=== PATIENT | female | born 1955 | race Caucasian/White ===

== ENCOUNTER → 2016-08-14 | Day surgery (SDC) | payer MEDICARE ==
[~2016-08-14] MED LIST: LIDOCAINE 1%/EPINEPHRINE INJ 20 ML VIAL ONE
--- NOTE | 2016-08-14 17:21 | Operative Report ---
Operative Report DATE OF SURGERY: 08/14/16 PREOPERATIVE DIAGNOSIS: Microcalcifications clustered 2 upper outer quadrant left breast POSTOPERATIVE DIAGNOSIS: Same OPERATION: 1. Stereotactically directed incisional mammotomy core biopsies left breast. 2. Interpretation of intraoperative mammography. 3. Placement of clip marker upper outer quadrant left breast SURGEON: FAN NORWOOD ANESTHESIA: Local TISSUE REMOVED OR ALTERED: Cores left breast COMPLICATIONS: None ESTIMATED BLOOD LOSS: scant INTRAOPERATIVE FINDINGS: See below PROCEDURE: He was seen in the holding area radiology suite. She was then taken to the procedure room where she was placed on the stereotactic table, left breast into compression, with a lateral approach to the upper outer quadrant microcalcifications previously identified. Surgical plan surgical time out conducted. There were 2 clusters of microcalcifications in the upper outer quadrant of the left breast. More prominent chosen to the target. Surface of breast was prepped Betadine. The target was localized using the the plus and -15 approach. Consuelo radiologist, was present for the localization. We agreed on the target together. The skin was anesthetized 1% lidocaine without epinephrine. 11 blade was used to make a mammotomy and the mammotome advanced appropriate depth. Pre-and post-fire films showed good alignment between the mammotome and the target microcalcifications. We proceeded to obtain approximately 12 cores from the left breast. Specimens were collected and photographed using the portable imaging device and were found to contain microcalcifications. We then placed a clip marker in the parenchyma of the left breast upper outer quadrant. Post-deployment films showed good apposition of tissue from the target zone, with retention of the clip. We felt the operation was complete. Mammotomy and sheath removed from the patient's left breast. Compression dressing applied. Discharge instructions provided to the patient. She tolerated procedure well.
--- NOTE | 2016-08-22 17:54 | WOMENS IMAGING REPORT ---
EXAM DESCRIPTION: STEREO BREAST BX; BREAST SPECIMEN; LEFT DIG DX MAMMO NO CHG COMPLETED DATE/TIME: 08/14/2016 10:52 am; 08/15/2016 10:01 am; 08/14/2016 10:45 am REASON FOR STUDY: MAMMORGRAPHIC MICROCALCIFICATION; LT BREAST CALCS; POST LT STEREO R92.0 MAMMOGRAP HIC MICROCALCIFICATION FOUND ON DX IMAGING OF COMPARISON: Outside mammograms 07/14/2016, [place] LIMITATIONS: None. PROCEDURE: Vacuum-assisted stereotactic-guided biopsy of the lesion in the left breast performed by Dr Rizo who also targeted the lesion. Using stereotactic guidance, a vacuum-assisted core biopsy of the targeted lesion was performed. A p ellet clip was deployed at the biopsy site. Post procedure image reveals the clip at the biopsy site . TECHNIQUE: Images from the stereotactic unit acquired during the procedure. Specimen radiography performed. Yes. Post- procedure image acquired post-clip placement. Yes. Post procedure 2 view mammograms performed in the mammography suite. Yes. FINDINGS: SPECIMEN RADIOGRAPH:Calcifications identified.. POST PROCEDURE MAMMOGRAM: Clip is in expected location. No significant hematoma. PATHOLOGY: Fibrocystic change with dense fibrosis. Microcalcifications with benign lobules and brandin a. No ductal epithelial hyperplasia, in situ, or invasive carcinoma identified. CONCORDANT: Yes. The operating surgeon was notified of the findings. TECHNICAL DOCUMENTATION: JOB ID: [id number] [employer]- All Rights Reserved
== END ==
LOC: RAD 08:37 → EDSTATUS 14:19
PROVIDERS: ATTEND Surgery
PROC: 0HBU3ZX Excision of Left Breast, Percutaneous Approach, Diagnostic (ICD-10-PCS; principal; 2016-08-14)
DX: R92.0 Mammographic microcalcification found on diagnostic imaging of breast (principal); N60.32 Fibrosclerosis of left breast
CPT/HCPCS: 88305 ×2; 88342; 19081; J3490; 76098; 77063